=== PATIENT | male | born 1950 | race Caucasian/White ===

== ENCOUNTER 2016-07-12 05:27 | Emergency (ER) | payer OTHER ==
[~2016-07-12] VITALS: Ht 175.3 cm; Wt 98.5 kg
[~2016-07-12 05:27] MED LIST: ENAL10TA7 PO; PARO10TA PO; SULF1TAB47 PO; ZOCO40TA PO
[2016-07-12 05:35] VITALS: BP 152/86; PULSE 81; RESP 18; TEMP 98.3; O2SAT 97
[2016-07-12] MEDS ORDERED: ZOCO40TA PO (06:02)
[2016-07-12] MEDS ORDERED: VASE1025 PO (06:02)
[2016-07-12] MEDS ORDERED: ENAL20TA PO (06:02)
[2016-07-12] MEDS ORDERED: PAXI20TA PO (06:02)
[2016-07-12] MEDS ORDERED: TAMS0.4C4 PO (06:02)
[2016-07-12] MEDS ORDERED: LIDOCAINE 2% JELLY 30 ML TUBE TOPICAL ONE (06:15)
--- NOTE | 2016-07-12 06:20 | PD ---
HPI Chief Complaint: Complaint Time Seen by Provider: 06:06 Travel History International Travel<30 days: No Contact w/Intl Traveler<30days: No Traveled to known affect area: No History of Present Illness HPI The patient is a 65-year-old male who normally has a small urethral orifice and has some difficulty urinating noted total inability around 5 PM yesterday to urinate. He felt some bladder pressure and came in to emergency department. He does have a history of urinary tract infections. He does not have a local urologist. He is a [facility] patient of Dr. Antony Lala. He denies any fever. He did take Azo tonight. PFS Past Medical History Anxiety: Yes Depression: Yes High Cholesterol: Yes Hypertension: Yes Tetanus Vaccination: > 5 Years Influenza Vaccination: Yes Past Surgical History Tonsillectomy: Yes Social History Alcohol Use: Yes (OCCASIONAL) Tobacco Use: No (QUIT JUNE 2015) Substance Use: No Allergies-Medications (Allergen,Severity, Reaction): Coded Allergies: No Known Allergies (Verified , 07/12/16) Reported Meds & Prescriptions Reported Meds & Active Scripts Active Reported Tamsulosin (Tamsulosin HCl) 0.4 Mg Cap 0.4 Mg PO DAILY Zocor (Simvastatin) 40 Mg Tab 40 Mg PO DAILY Paxil (Paroxetine HCl) 20 Mg Tab 20 Mg PO DAILY Enalapril (Enalapril Maleate) 20 Mg Tab 20 Mg PO DAILY Vaseretic (Enalapril Maleate/HCTZ) 10-25 Mg Tab 1 Tab PO DAILY Review of Systems Except as stated in HPI: all other systems reviewed are Neg Physical Exam Narrative GENERAL: Well-nourished, well-developed patient in slight apparent distress with his discomfort on the end of his penis. His vital signs show blood pressure 152/86 but are otherwise normal. SKIN: Focused skin assessment warm/dry. HEAD: Normocephalic. EYES: No scleral icterus. No injection or drainage. NECK: Supple, trachea midline. No JVD or lymphadenopathy. CARDIOVASCULAR: Regular rate and rhythm without murmurs, gallops, or rubs. RESPIRATORY: Breath sounds equal bilaterally. No accessory muscle use. GASTROINTESTINAL: Abdomen soft, non-tender, nondistended. MUSCULOSKELETAL: No cyanosis, or edema. BACK: Nontender without obvious deformity. No CVA tenderness. GENITOURINARY: Circumcised. Testes descended bilaterally without evidence of rotation. No lesions or erythema. No urethral discharge. The patient, when I examine him, did not have a distended bladder and there were 300 cc in the urinal. The urine was orange, consistent with him having taken Azo. Data Data Last Documented VS Vital Signs Date Time Temp Pulse Resp B/P Pulse Ox O2 Delivery O2 Flow Rate FiO2 07/12/16 05:35 98.3 81 18 152/86 97 Orders Lidocaine 2% Jelly (Xylocaine 2% Jelly) (07/12/16 06:15) Urinalysis - C+S If Indicated (07/12/16 06:24) MDM Medical Decision Making Medical Screen Exam Complete: Yes Emergency Medical Condition: Yes Medical Record Reviewed: Yes Differential Diagnosis Urinary retention from small urethral orifice, urethral stricture, UTI Narrative Course The patient appeared to have temporary urinary retention from his small urethral orifice. He does not have any bladder distention and is successfully urinated 300 cc without the help of a catheter. I discussed the patient with Dr. Cuevas and Dr. vallecillo will see the patient in his office. The patient is to call Dr. Cuevas office to set up an appointment today. Diagnosis Primary Impression: Urinary retention Additional Instructions: As we discussed, call Dr. Cuevas office this morning to set up an appointment. 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 Cuevas about this. Med/Other Pt SpecificInfo: No Change to Meds Disposition: 01 DISCHARGE HOME Condition: Stable Jeremy Valladares MD July 12, 2016 06:20
[2016-07-12 06:40] LABS: BLOOD, URINE TRACE (NEG); GLUCOSE,URINE 100 mg/dL (NEG); KETONE, URINE NEG (NEG)
[2016-07-12 06:53] LABS: METHOD OF COLLECTION CLEAN CATCH; NITRITE,URINE POS (NEG)
[2016-07-12 06:54] LABS: RBC, URINE 0-3 /hpf (0-3); SQUAMOUS EPITHELIAL CELL URINE 0-5 /hpf (0-5); URINE COLOR ORANGE (YELLW/STRAW); WBC, URINE 0-2 /hpf (0-5)
[2016-07-12 06:55] LABS: COMMENT (UR) CULTURE INDICATED; CULTURE IF INDICATED CULTURE INDICATED
== END 2016-07-12 06:44 | disposition home or self-care (01) ==
LOC: PHED 05:27
DX: R33.9 Retention of urine, unspecified (principal); I10 Essential (primary) hypertension; E78.00 Pure hypercholesterolemia, unspecified; Z87.440 Personal history of urinary (tract) infections; Z86.59 Personal history of other mental and behavioral disorders; Z87.891 Personal history of nicotine dependence
CPT/HCPCS: 81001; 87086; 99283